=== PATIENT | male | born 1990 | race Caucasian/White ===

== ENCOUNTER 2024-04-24 22:29 | Inpatient (IN) | payer BC, OTHER ==
[~2024-04-24] VITALS: Ht 175.3 cm; Wt 102.0 kg
[~2024-04-24 22:29] MED LIST: CYCL-1 PO; POTA-207 PO; TRAM50TA2 PO
[2024-04-24 23:20] LABS: HEMATOCRIT 40.5 % (42.0-52.0); HEMOGLOBIN 13.9 g/dl (14.0-17.9); RED CELL DISTRIBUTION WIDTH 13.3 % (11.5-14.5)
[2024-04-24 23:21] LABS: BASOPHILS % (AUTO) 0.4 % (0-1); EOSINOPHILS % (AUTO) 0.1 % (0-6); LYMPHOCYTES # (AUTO) 0.6 X10'3 (1.1-4.8); LYMPHOCYTES % (AUTO) 7.3 % (21-51); MEAN CORPUSCULAR HEMOGLOBIN 29.9 PG (27.0-31.0); MEAN CORPUSCULAR HGB CONC 34.4 g/dL (33.0-36.5); MEAN CORPUSCULAR VOLUME 86.9 FL (78-98); MEAN PLATELET VOLUME 7.7 FL (7.4-10.4); MONOCYTES # (AUTO) 0.3 X10'3 (0-0.9); MONOCYTES % (AUTO) 4.1 % (2-12); NEUTROPHILS # (AUTO) 7.1 X10'3 (1.8-7.7); NEUTROPHILS % (AUTO) 88.1 % (42-75); PLATELET COUNT 355 X10'3 (140-440); RED BLOOD COUNT 4.66 X10'6 (4.70-6.10)
[2024-04-24 23:41] LABS: ALBUMIN 3.4 G/DL (3.4-5.0); ANION GAP 9 (8-16); BLOOD UREA NITROGEN 17 MG/DL (7-18); BUN/CREATININE RATIO 16.2 (10.0-20.0); CALCIUM 9.8 MG/DL (8.5-10.1); CHLORIDE 100 MMOL/L (99-107); CREATININE 1.05 MG/DL (0.60-1.10); GLUCOSE 148 MG/DL (70-104); POTASSIUM 4.5 MMOL/L (3.5-5.1); PRO BRAIN NATRIURETIC PEPTIDE 33 PG/ML (0-125); SODIUM 136 MMOL/L (135-145); eCRCL 101 ML/MIN; eGFR 82 ML/MIN
[2024-04-25] MEDS ORDERED: magnesium 2GM in 50ml NS 50 ML IV PRN (03:05)
[2024-04-25] MEDS ORDERED: potassium Cl 40MEQ/1/2NS 520ml 520 ML IV PRN (03:05)
[2024-04-25] MEDS ORDERED: ondansetron/PF 4mg/2ml inj IV PRN (03:05)
[2024-04-25] MEDS ORDERED: mag hydrox/Alum hydrox/simeth 30ml oral suspension PO PRN (03:05)
[2024-04-25] MEDS ORDERED: magnesium 4gm in 100ml NS 100 ML IV PRN (03:05)
[2024-04-25] MEDS ORDERED: potassium Cl 20 mEq SR tablet PO PRN ×2 (03:05)
[2024-04-25] MEDS ORDERED: acetaminophen 325mg tablet PO PRN ×2 (03:05)
[2024-04-25] MEDS ORDERED: magnesium Cl slow-release 64mg tablet PO PRN (03:05)
[2024-04-25] MEDS ORDERED: magnesium hydroxide 30ml (MOM) UD suspension PO PRN (03:05)
[2024-04-25] MEDS: CefTRIAXone/D5W-Rocephin 1gm 50 ML IV ONE (03:07)
[2024-04-25] MEDS ORDERED: iohexol 350MG/ML 100ml bottle IV ONE (03:15)
[2024-04-25 03:50] LABS: POTASSIUM 4.1 MMOL/L (3.5-5.1)
[2024-04-25] MEDS: methylPREDNISolone sod succ 125mg/2ml vial IV ONE (04:03)
[2024-04-25] MEDS: azithromycin/NS 500mg/250ml 250 ML IV ONE (04:03)
[2024-04-25] MEDS: normal saline 1000ml 1,000 ML IV SCH (04:03)
[2024-04-25] MEDS: normal saline 1000ml 1,000 ML IV ONE (04:04)
[2024-04-25] MEDS: benzonatate 100mg capsule PO SCH (04:08)
[2024-04-25] MEDS ORDERED: DEXA6TAB PO (04:24)
[2024-04-25] MEDS ORDERED: NO HOME MEDS (04:24)
[2024-04-25] MEDS: K and/or MAG REPLACEMENT MC SCH (08:00)
[2024-04-25] MEDS: lactobacillus rhamnosus 10,000 MMU CELLS/CAPSULE PO SCH (08:49)
[2024-04-25] MEDS: guaiFENesin ER 600mg tablet PO SCH (08:49)
[2024-04-25] MEDS: methylPREDNISolone sod succ 125mg/2ml vial IV SCH (08:49)
[2024-04-25 10:06] LABS: HIV ANTIBODY 1&2 RAPID NON-REACTIVE (Neg)
[2024-04-25 10:51] VITALS: RESP 16; O2SAT 94
[2024-04-25 11:00] VITALS: BP 122/65; PULSE 70; RESP 18; TEMP 98.4; O2SAT 92
[2024-04-25 15:00] VITALS: BP 123/65; PULSE 75; RESP 16; TEMP 98.4; O2SAT 94
[2024-04-25 18:00] VITALS: BP 125/68; PULSE 82; RESP 19; TEMP 98.4; O2SAT 92
[2024-04-25 20:00] VITALS: RESP 16; O2SAT 94
[2024-04-25] MEDS: enoxaparin 40mg/0.4ml syringe SQ SCH (20:27)
[2024-04-25 22:00] VITALS: BP 125/71; PULSE 64; RESP 16; TEMP 97.4; O2SAT 94
[2024-04-26] VITALS (8 sets, daily range): BP systolic 119–135; BP diastolic 68–78; PULSE 64–83; RESP 15–20; TEMP 97.1–98.6; O2SAT 92–99
[2024-04-26] MEDS: CefTRIAXone/D5W-Rocephin 1gm 50 ML IV SCH (04:25)
[2024-04-26] MEDS: azithromycin/NS 500mg/250ml 250 ML IV SCH (04:26)
[2024-04-26 06:07] LABS: BASOPHILS % (AUTO) 0 % (0-1); EOSINOPHILS % (AUTO) 0 % (0-6); HEMATOCRIT 38.4 % (42.0-52.0); HEMOGLOBIN 12.8 g/dl (14.0-17.9); LYMPHOCYTES # (AUTO) 1.5 X10'3 (1.1-4.8); LYMPHOCYTES % (AUTO) 9.1 % (21-51); MEAN CORPUSCULAR HEMOGLOBIN 29.4 PG (27.0-31.0); MEAN CORPUSCULAR HGB CONC 33.3 g/dL (33.0-36.5); MEAN CORPUSCULAR VOLUME 88.3 FL (78-98); MEAN PLATELET VOLUME 8.2 FL (7.4-10.4); MONOCYTES % (AUTO) 5.9 % (2-12); NEUTROPHILS # (AUTO) 14.1 X10'3 (1.8-7.7); PLATELET COUNT 373 X10'3 (140-440); RED BLOOD COUNT 4.35 X10'6 (4.70-6.10); RED CELL DISTRIBUTION WIDTH 13.4 % (11.5-14.5); WHITE BLOOD COUNT 16.6 X10'3 (4.5-11.0)
[2024-04-26 06:13] LABS: APTT 38 SECONDS (22-32)
[2024-04-26 06:18] LABS: ALANINE AMINOTRANSFERASE 111 U/L (12-78); ALBUMIN 2.9 G/DL (3.4-5.0); ALBUMIN/GLOBULIN RATIO 0.6 (1.1-1.5); ALKALINE PHOSPHATASE 79 IU/L (46-116); ANION GAP 12 (8-16); ASPARTATE AMINO TRANSFERASE 18 U/L (10-37); BILIRUBIN,TOTAL 0.6 MG/DL (0.1-1.0); BLOOD UREA NITROGEN 21 MG/DL (7-18); BUN/CREATININE RATIO 25.3 (10.0-20.0); CHLORIDE 104 MMOL/L (99-107); CREATININE 0.83 MG/DL (0.60-1.10); GLUCOSE 144 MG/DL (70-104); MAGNESIUM 2.3 MG/DL (1.5-2.4); PHOSPHORUS 4.6 MG/DL (2.3-4.5); POTASSIUM 4.3 MMOL/L (3.5-5.1); SODIUM 137 MMOL/L (135-145); TOTAL CARBON DIOXIDE 21.3 MMOL/L (24-32); TOTAL PROTEIN 7.4 G/DL (6.4-8.2); eCRCL 128 ML/MIN; eGFR > 90 ML/MIN
[2024-04-27 02:00] VITALS: BP 100/61; PULSE 76; RESP 19; TEMP 97.5; O2SAT 97
[2024-04-27 05:49] LABS: BASOPHILS % (AUTO) 0.1 % (0-1); EOSINOPHILS % (AUTO) 0.1 % (0-6); HEMATOCRIT 39.9 % (42.0-52.0); HEMOGLOBIN 13.4 g/dl (14.0-17.9); LYMPHOCYTES # (AUTO) 1.4 X10'3 (1.1-4.8); LYMPHOCYTES % (AUTO) 11.6 % (21-51); MEAN CORPUSCULAR HEMOGLOBIN 29.2 PG (27.0-31.0); MEAN CORPUSCULAR HGB CONC 33.5 g/dL (33.0-36.5); MONOCYTES # (AUTO) 0.5 X10'3 (0-0.9); MONOCYTES % (AUTO) 3.9 % (2-12); NEUTROPHILS # (AUTO) 10.2 X10'3 (1.8-7.7); NEUTROPHILS % (AUTO) 84.3 % (42-75); PLATELET COUNT 422 X10'3 (140-440); RED BLOOD COUNT 4.59 X10'6 (4.70-6.10); RED CELL DISTRIBUTION WIDTH 13.2 % (11.5-14.5); WHITE BLOOD COUNT 12.1 X10'3 (4.5-11.0)
[2024-04-27 06:00] VITALS: BP 129/80; PULSE 94; RESP 16; TEMP 97.3; O2SAT 96
[2024-04-27 06:04] LABS: APTT 44 SECONDS (22-32)
[2024-04-27 06:29] LABS: ALANINE AMINOTRANSFERASE 91 U/L (12-78); ALBUMIN 3.1 G/DL (3.4-5.0); ALBUMIN/GLOBULIN RATIO 0.7 (1.1-1.5); ALKALINE PHOSPHATASE 76 IU/L (46-116); ANION GAP 13 (8-16); ASPARTATE AMINO TRANSFERASE 15 U/L (10-37); BILIRUBIN,TOTAL 0.9 MG/DL (0.1-1.0); BLOOD UREA NITROGEN 21 MG/DL (7-18); BUN/CREATININE RATIO 21.9 (10.0-20.0); CALCIUM 9.1 MG/DL (8.5-10.1); CHLORIDE 102 MMOL/L (99-107); CREATININE 0.96 MG/DL (0.60-1.10); GLUCOSE 135 MG/DL (70-104); MAGNESIUM 2.5 MG/DL (1.5-2.4); PHOSPHORUS 5.1 MG/DL (2.3-4.5); POTASSIUM 4.3 MMOL/L (3.5-5.1); SODIUM 138 MMOL/L (135-145); TOTAL PROTEIN 7.7 G/DL (6.4-8.2); eCRCL 110 ML/MIN; eGFR > 90 ML/MIN
[2024-04-27 08:00] VITALS: RESP 21; O2SAT 93
[2024-04-27 11:00] VITALS: BP 118/61; PULSE 74; RESP 18; TEMP 97.7; O2SAT 94
[2024-04-27] MEDS ORDERED: LEVO-65 PO (11:38)
[2024-04-27] MEDS ORDERED: LACT1CAP26 PO (11:39)
[2024-04-27] MEDS ORDERED: GUAI600T45 PO (11:39)
[2024-04-30 21:21] LABS: HIV-1 RNA by PCR <20 copies/mL (.)
== END 2024-04-27 14:13 | disposition home or self-care (01) | DRG 195 ==
LOC: ER 22:30 → ED HOLD 04-25 03:07 → PCU 3S 04-25 08:03
PROVIDERS: ADMIT Internal Medicine Pulmonary Disease; ATTEND Internal Medicine
PROC: B32T1ZZ Computerized Tomography (CT Scan) of Left Pulmonary Artery using Low Osmolar Contrast (ICD-10-PCS; principal; 2024-04-25)
PROC: B3201ZZ Computerized Tomography (CT Scan) of Thoracic Aorta using Low Osmolar Contrast (ICD-10-PCS; 2024-04-25)
PROC: B32S1ZZ Computerized Tomography (CT Scan) of Right Pulmonary Artery using Low Osmolar Contrast (ICD-10-PCS; 2024-04-25)
DX: J18.1 Lobar pneumonia, unspecified organism (principal); Z20.822 Contact with and (suspected) exposure to COVID-19; R09.02 Hypoxemia; Z79.899 Other long term (current) drug therapy
CPT/HCPCS: 36415; 71046; 71275; 80048; 80053; 83605; 83735; 83880; 84100; 84132; 84145; 84484; 85025; 85610; 85730; 86703; 87040; 87081; 87502; 87503; 87535; 87811; 93005; 96365; 99285; G0378; J0456; J0696; J1650; J2919; J7030; Q9967